=== PATIENT | male | born 1960 | race Caucasian/White ===

== ENCOUNTER 2016-09-16 05:32 | Emergency (ER) | payer OTHER ==
[~2016-09-16] VITALS: Ht 167.6 cm; Wt 73.0 kg
[~2016-09-16 05:32] MED LIST: FAMO-96 PO; FOLI-49 PO; LISI40TA9 PO; METF500T4 PO; MULT-761 PO; THIA100T10 PO
[2016-09-16 05:35] VITALS: Ht 167.6 cm; Wt 73.0 kg
[2016-09-16] MEDS ORDERED: ACET500C5 PO (05:57)
[2016-09-16] MEDS ORDERED: HYDR-906 PO (05:57)
--- NOTE | 2016-10-26 23:25 | ERA ---
ER Documentation Chief Complaint Date/Time DATE: 10/26/16 TIME: 23:22 Chief Complaint left arm pain, sp fall from bed landing on his left side 2 months ago HPI 55-year-old male with a chief complaint of left arm pain status post fall from bed 2 months ago. Patient states that his pain is worse with movement. Is taking ibuprofen with minimal relief. Has not seen his PCP. Denies numbness or tingling or loss of motion. Has no other complaints and describes no other associated manifestations. ROS All systems reviewed and are negative except as per history of present illness. Medications Home Meds Active Scripts Acetaminophen* (Tylophen*) 500 Mg Capsule, 1 CAP PO Q6H Y for PAIN AND OR ELEVATED TEMP, #20 CAP Prov:ORTEGA ANTUNEZ PA-C 09/16/16 Hydrocodone/Acetaminophen ([place] 5-325 Tablet) 1 Each Tablet, 1 TAB PO Q6H Y for PAIN, #7 TAB Prov:ORTEGA ANTUNEZ PA-C 09/16/16 Multivitamin (MULTI VITAMIN DAILY) 1 Each Tablet, 1 TAB PO DAILY, #30 TAB Prov:MADDIE ESPINOZA MD 09/12/15 Thiamine* (Thiamine*) 100 Mg Tablet, 100 MG PO DAILY, #30 TAB Prov:MADDIE ESPINOZA MD 09/12/15 Folic Acid* (Folic Acid*) 1 Mg Tablet, 1 MG PO DAILY, #30 TAB Prov:MADDIE ESPINOZA MD 09/12/15 Famotidine* (Pepcid*) 20 Mg Tablet, 20 MG PO DAILY, #30 TAB Prov:MADDIE ESPINOZA MD 09/12/15 Reported Medications Lisinopril* (Lisinopril*) 40 Mg Tablet, 40 MG PO DAILY, #30 TAB 09/09/15 Metformin Hcl* (Metformin Hcl*) 500 Mg Tablet, 500 MG PO WITH BREAKFAST DINNE, # 30 TAB 09/09/15 Allergies Allergies: Coded Allergies: No Known Allergy (Unverified , 09/09/15) PMhx/Soc History of Surgery: Yes (l;eft wrist surgey) Anesthesia Reaction: No Hx Neurological Disorder: No Hx Respiratory Disorders: No Hx Cardiac Disorders: Yes (HTN) Hx Psychiatric Problems: No Hx Miscellaneous Medical Probl: No Hx Alcohol Use: No (3 to 4 bottles/day) Hx Substance Use: No Hx Tobacco Use: No Smoking Status: Never smoker Physical Exam Physical Exam Const: Well-appearing 55-year-old male in no acute distress Head: Atraumatic Eyes: Normal Conjunctiva ENT: Normal External Ears, Nose and Mouth. Neck: Full range of motion..~ No meningismus. Resp: Clear to auscultation bilaterally Cardio: Regular rate and rhythm, no murmurs Abd: Soft, non tender, non distended. Normal bowel sounds Skin: No petechiae or rashes Back: No midline or flank tenderness Ext: No tenderness to palpation. Full range of motion of the affected extremity. No swelling. No signs of infection. No cyanosis, or edema Neur: Awake and alert Psych: Normal Mood and Affect Procedures/MDM Patient was evaluated for left arm pain 2 months as described in history and physical examination. Physical exam is largely unremarkable. I will suspicion for bony pathology, or neurovascular compromise. Plan of management will include pain medications and follow-up with PCP outpatient. X-rays are not needed at this time. No indication. I have spoke with the patient regarding their condition and future management. They have verbally responded that they understand their status and treatment plan. The patients vitals are stable, and their current condition is appropriate for discharge. The patient will be given discharge instructions with return precautions. Departure Diagnosis: Primary Impression: Pain of left arm Additional Impression: Arthritis Condition: Stable Patient Instructions: Osteoarthritis: Exercise, Osteoarthritis: Managing Pain, Osteoarthritis: Injections or Surgery Additional Instructions: Liam un seguimiento con willis PCP dentro de los prximos 1-3 leonard para monico evaluaci n ms completa y monico posible derivacin a un especialista. Devuelva el departamento de emergencia inmediatamente si los sntomas empeoran o cambian. Si tiene alguna pregunta con respecto a los medicamentos, consulte con willis farmac utico o con nosotros antes de salir. Si se producen reacciones adversas mientras chioma garcía medicamentos, suspenda el tratamiento y regrese inmediatamente al servicio de urgencias. [place] garcía medicamentos segn las indicaciones y complete el curso completo del tratamiento. ORTEGA ANTUNEZ PA-C Oct 26, 2016 23:25
== END 2016-09-16 06:11 | disposition home or self-care (01) ==
LOC: FTE 05:32
DX: M79.602 Pain in left arm (principal); M19.90 Unspecified osteoarthritis, unspecified site; I10 Essential (primary) hypertension; Z79.84 Long term (current) use of oral hypoglycemic drugs
CPT/HCPCS: 99283

== ENCOUNTER 2017-03-27 02:38 | Emergency (ER) | END 2017-03-27 03:23 | disposition home or self-care (01) ==

== ENCOUNTER 2017-11-25 11:17 | Emergency (ER) | END 2017-11-25 13:18 | disposition home or self-care (01) ==

== ENCOUNTER 2018-02-18 11:44 | Emergency (ER) | payer OTHER ==
[~2018-02-18] VITALS: Wt 69.8 kg
[~2018-02-18 11:44] MED LIST changes: +ACET500C5 PO; +CLOT30CR24 TOP; +FLUC150T PO; +HYDR-4011 PO; +LISI40TA3 PO; -LISI40TA9 PO; +METF500T24 PO; -METF500T4 PO; +MTF1000T PO; +NAPR-985 PO
[2018-02-18] MEDS ORDERED: KETOROLAC 60 MG INJ IM STA (12:59)
[2018-02-18] MEDS ORDERED: CYCL10TA7 PO (14:20)
[2018-02-18] MEDS ORDERED: MED4DP PO (14:20)
[2018-02-18] MEDS ORDERED: OXYC-279 PO (14:20)
[2018-02-18] MEDS ORDERED: NAPR-985 PO (14:20)
[2018-02-18] MEDS ORDERED: DEXAMETHASONE 10 MG/ML 1 ML INJ PO ONE (14:30)
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
[2018-02-18 15:20] VITALS: BP 152/95; PULSE 72; RESP 18
== END 2018-02-18 15:21 | disposition home or self-care (01) ==
LOC: FTE 11:44
DX: M54.5 Low back pain (principal); E11.9 Type 2 diabetes mellitus without complications; Z79.84 Long term (current) use of oral hypoglycemic drugs
CPT/HCPCS: 72131; 96372; J1100; J1885; Z7502